=== PATIENT | female | born 2000 | race Caucasian/White ===

== ENCOUNTER → 2020-02-02 14:15 | Outpatient (CLI) | payer SELFPAY ==
--- NOTE | 2020-02-02 14:22 | CA_ITS ---
APPROVED REPORT Left Lower Extremity Venous Study for DVT. [employer] Machine Operator: Zenobia Tellez RVT Indications Lower Extremity Pain: Left Lower Extremity Edema: Left PT C/O PALPABLE KNOT BACK OF MID CALF X SEVERAL WKS,NKI Risk Factors Obesity Vein Imaging CFV (L): compressive, spontaneous, phasic, augmentation FEM (L): compressive, spontaneous, phasic, augmentation POP (L): compressive, spontaneous, phasic, augmentation PTV (L): Compressible GSV (L): Compressible Peroneals (L):Compressible GAS (L): Compressible Findings Study suggests no evidence of DVT of the left lower extremity. Study suggests no evidence of SVT of the left lower extremity. Conclusion Study suggests no evidence of DVT of the left lower extremity. Study suggests no evidence of SVT of the left lower extremity. Critical Notification Physician Notified Date: 02/02/2020 Time: 14:49 Physician Name: Bekah Espinal Electronically signed by : Renan Montana MD 02/02/2020 15:09:01
== END ==
PROVIDERS: PCP Family Medicine; Visit Provider Nurse Practitioner Family
DX: M79.605 Pain in left leg (principal); M79.89 Other specified soft tissue disorders
CPT/HCPCS: 93971

== ENCOUNTER → 2020-02-03 15:32 | Outpatient (CLI) | payer BC, SELFPAY ==
[2020-02-03 18:05] LABS: Activated Partial Thrombo Time 2.5 seconds (23.6-34.0); Fibrinogen 573 mg/dL (204-500); INR 0.98 (0.9-1.1); Prothrombin Time 10.9 seconds (9.4-11.8)
[2020-02-06 13:26] LABS: Thrombin Time 17.4 sec (0.0-23.0)
== END ==
PROVIDERS: Visit Provider Family Medicine
DX: R79.1 Abnormal coagulation profile (principal)
CPT/HCPCS: 36415; 85384; 85610; 85670; 85730

== ENCOUNTER → 2020-03-03 12:52 | Outpatient (CLI) | payer SELFPAY ==
--- NOTE | 2020-03-03 13:03 | CT_ITS ---
PROCEDURE: CT HEAD/BRAIN WO/W CON CLINICAL INDICATION: HEADACHE,NUMBNESS AND TINGLING COMPARISON: No exams were available for comparison TECHNIQUE: IV Contrast: 100ML Isovue 370 Axial images obtained. All CT scans at the facility use one or more dose reduction, viz: automated exposure control, ma/kV adjustment per patient size (including targeted exams where dose is matched to indication, i.e. head), or iterative reconstruction technique. FINDINGS: No midline shift, mass effect, intracranial hemorrhage, hydrocephalus, or extra-axial fluid collection is evident. No enhancing lesions are evident. The lateral ventricles have a slit-like configuration. This may be seen with idiopathic intracranial hypertension. Please correlate with clinical parameters. No enhancing lesions are evident. The calvarium has an unremarkable appearance. No mastoid effusion. There is prominent pneumatization of the petrous bone on both sides right greater than left with a small amount of fluid within the left pneumatized petrous region. No sinus air-fluid levels evident. The adenoids are prominent. There is a small lymph node along the parotid glands anteriorly on both sides at 5 mm on the right and 7 mm on the left IMPRESSION: 1. No acute intracranial findings. 2. Slit-like lateral ventricles which may be seen with idiopathic intracranial hypertension. Please correlate clinically. 3. Small amount fluid within pneumatized the left petrous bone. Dictated by: Renan Montana MD 03/03/2020 19:05 Renan Montana MD in [place] 03/03/2020 19:05
[2020-03-03 13:23] LABS: Blood Urea Nitrogen 13 mg/dl (7-17); Estimated Glomerular Filt Rate 105 ml/min (>60); GFR (African American) 127 ML/MIN (>60)
== END ==
PROVIDERS: PCP Family Medicine; Visit Provider Family Medicine
DX: R51.9 Headache, unspecified (principal); R20.2 Paresthesia of skin
CPT/HCPCS: 36415; 70470; 82565; 84520; Q9967

== ENCOUNTER → 2023-01-29 11:21 | Outpatient (CLI) | payer BC, SELFPAY ==
[2023-01-29 16:29] LABS: Hemoglobin A1C 5.9 % (4.0-6.0)
[2023-01-29 16:52] LABS: Alanine Aminotransferase 40 U/L (12-78); Albumin Level 3.6 g/dl (3.5-5.0); Albumin/Globulin Ratio 1.1 (1.1-1.8); Alkaline Phosphatase 81 U/L (38-126); Anion Gap 12.5 mEq/L (5-15); Aspartate Amino Transferase 38 U/L (14-36); Bilirubin,Total 0.3 mg/dl (0.2-1.3); Blood Urea Nitrogen 16 mg/dl (7-17); Calcium 8.4 mg/dl (8.4-10.2); Carbon Dioxide 27 mmol/L (22.0-30.0); Chloride 106 mmol/L (98-107); Chol/HDL Ratio 4.3 (1-3.5); Cholesterol 187 mg/dl (140-200); Estimated Glomerular Filt Rate 102 ml/min (>60); GFR (African American) 123 ML/MIN (>60); Globulin 3.3 g/dL (1.3-3.2); Glucose 149 mg/dl (74-100); HDL Cholesterol 44 mg/dl (40-60); Potassium 4.5 mmoL/L (3.5-5.1); Sodium 141 mmol/L (136-145); Total Protein,Serum 6.9 g/dl (6.3-8.2); Triglycerides 88 mg/dl (30-150); VLDL Cholesterol 18 mg/dL (0-40)
[2023-01-29 17:03] LABS: Direct LDL Cholesterol 116.22 mg/dL (100-129)
[2023-01-29 17:12] LABS: T4 (Thyroxine) 10.6 ug/dl (5.53-11.0)
[2023-01-29 17:24] LABS: Thyroid Stimulating Hormone 1.17 uIU/mL (0.465-4.68)
[2023-01-30 11:13] LABS: Triiodothyronine (T3) Free 2.5 pg/mL (2.0-4.4)
== END ==
PROVIDERS: PCP Nurse Practitioner Family; Visit Provider Nurse Practitioner Family
DX: O24.419 Gestational diabetes mellitus in pregnancy, unspecified control (principal); Z39.2 Encounter for routine postpartum follow-up
CPT/HCPCS: 80053; 80061; 83036; 84436; 84443; 84481

== ENCOUNTER → 2023-03-02 17:07 | Outpatient (CLI) | payer BC, SELFPAY | PROVIDERS: PCP Nurse Practitioner Family; Visit Provider Nurse Practitioner Family | DX: T81.49XA Infection following a procedure, other surgical site, initial encounter (principal); L03.311 Cellulitis of abdominal wall | CPT/HCPCS: 87070; 87205 ==

== ENCOUNTER → 2023-03-29 07:12 | Outpatient (CLI) | payer BC, SELFPAY | PROVIDERS: PCP Nurse Practitioner Family; Visit Provider Nurse Practitioner Family | DX: Z32.00 Encounter for pregnancy test, result unknown (principal) | CPT/HCPCS: 36415; 84702 ==

== ENCOUNTER 2024-12-26 09:20 | Outpatient (CLI) | payer BC, SELFPAY ==
--- OUTSIDE RECORDS SUMMARY | 2024-12-26 09:22 | XMS_ITS | Clinical Summary ---
[facility] Address [address] [place] [address] Care Team Providers Care Road Boss Name Role Phone Teddy Priyanka FERREIRA Primary Care Provider [phone] Allergies Active Allergy Reactions Criticality Noted Date Comments Sulfa Antibiotics Hives 08/26/2018 Medications vitamin (, CLASSIC, vitamin) tablet Take by mouth Daily. Active OneTouch Delica Lancets 33G misc 1 each 4 (Four) Times a Day. 200 each 3 09/07/2022 Active glucose monitor monitoring kitIndications: Prediabetes Use to check BG 5x/day 1 each 09/25/2023 Active Lancets miscIndications :Prediabetes Use 1 each 5 (Five) Times a Day. 150 each 3 09/25/2023 Active Insulin Pen Needle 32G X 4 MM miscIndications :Prediabetes Use QID with insulin 150 each 1 09/25/2023 Active docusate sodium 100 MG capsule Take 1 capsule by mouth 2 (Two) Times a Day As Needed for Constipation . 60 capsule 10/24/2023 10:34 AM EDT 10/24/2023 Active ferrous sulfate 325 (65 FE) MG tablet Take 1 tablet by mouth Daily With Breakfast. 30 tablet 10/24/2023 10:34 AM EDT 10/25/2023 Active ibuprofen (ADVIL,MOTRIN) 600 MG tablet Take 1 tablet by mouth Every 6 (Six) Hours. 60 tablet 10/24/2023 10:34 AM EDT 10/24/2023 Active Active Problems Problem Noted Date Diagnosed Date S/P repeat low transverse 10/22/2023 Gestational diabetes mellitu s in , insulin controlled 10/18/2023 Insulin controlled gestation al diabetes mellitus (GDM) in third trimester 10/19/2022 Resolved Problems Problem Noted Date Diagnosed Date Resolved Date S/P primary low transverse 12/09/2022 10/22/2023 Term 12/07/2022 12/09/2022 Elevated INR 03/02/2020 12/09/2022 Immunizations Immunization Administration Dates Next Due Fluzone (or Fluarix & Flulaval for VFC) >6mos Meningococcal, Unspecified 12/08/2015 Family History Medical History Relation Name Comments Diabetes Father Shukri Maraino Type 2 Cancer Mother Sarah Mariano Vaginal cance r early 1999 Relation Name Status Comments Father Shukri Mariano Mother Sarah Mariano Social History Tobacco Use Types Packs/Day Years Used Date Smoking Tobacco: Never Passive Smoke Exposure: Never Smokeless Tobacco: Never Tobacco Cessation:Counseling Given: Not Answered Alcohol Use Standard Drinks/Week Comments Not Currently 0 (1 standard drink = 0.6 oz pur e alcohol) OASIS D0700: Social Isolation Answer Da te Recorded Frequency of experiencing loneliness or isolatio n Never 2023 OASIS A1250: Transportation Answer Date Recorded Lack of Transportation (Medical) No 2023 Lack of Transportation (Non-Medical) No 2023 Patient Unable or Declines to Respond No 2023 OASIS B1300: Health Literacy Answer Jamal e Recorded Frequency of needing help to read materials from doctor or pharmacy Never 2023 [facility] Utilities Answer Date Recorded In the past 12 months has e Periscope, oil, or water HistoryFile threatened to shut off services in your home? No 10/22/2023 AUDIT-C Answer Date Recorded Q1: How often do you have a drink containing alc ohol? Monthly or less 10/22/2023 Q2: How many drinks containi ng alcohol do you have on a typical day when you are drinking? 1 or 2 10/22/2023 Q3: How often do you have si x or more drinks on one occasion? Never 10/22/2023 Overall Financial Resource Strain (CARDIA) Answe r Date Recorded How hard is it for you to pa y for the very basics like food, housing, medical care, and heating? Not very hard 10/22/2023 PHQ-2 Answer Date Recorded Retired PHQ-9: Brief Depression Severity Measure Score 0 12/08/2022 [facility] - Occupational Stress Questionnaire Answer Date Recorded Do you feel stress - tense, restless, nervous, or anxious, or unable to sleep at night because your mind is troubled all the time - these days? Not at all 10/22/2023 Exercise Vital Sign Answer Date Recorde d On average, how many days pe r week do you engage in moderate to strenuous exercise (like a brisk walk)? 3 days 10/22/2023 On average, how many minutes do you engage in exercise at this level? 30 min 10/22/2023 Hunger Vital Sign Answer Date Recorded Within the past 12 months, y ou worried that your food would run out before you got the money to buy more. Never true 10/22/19 24 Within the past 12 months, t he food you bought just didn't last and you didn't have money to get more. Never true 10/22/2023 PRAPARE - Transportation Answer Date Re corded In the past 12 months, has l ack of transportation kept you from medical appointments or from getting medications? No 04/2023 In the past 12 months, has l ack of transportation kept you from meetings, work, or from getting things needed for daily living? No 10/22/2023 [place] Depression Scale Answer Date Recorded Retired [place] Depression Score 4 10/22/2023 Retired EPD Scale: Thought of Harming Self Unrec ognized value 10/22/2023 Abuse Screen Answer Date Recorded Feels Unsafe at Home or Work/School no 10/22/2023 Feels Threatened by Someone no 04/2023 Does Anyone Try to Keep You From Having Contact with Others or Doing Things Outside Your Home? no 10/22/2023 Physical Signs of Abuse Present no 10/22/2023 Housing Stability Answer Date Recorded Current Living Arrangements home 04/2023 Potentially Unsafe Housing Conditions none 10/22/2023 Family and Community Support Answer Jamal e Recorded If for any reason you need h elp with day-to-day activities such as bathing, preparing meals, shopping, managing finances, etc., do you get the help you need? I don't need any help 10/22/2023 How often do you feel lonely or isolated from those around you? Never 10/22/2023 Employment Answer Date Recorded Do you want help finding or keeping work or a job? I do not need or want help 10/22/2023 Disabilities Answer Date Recorded Difficulty Concentrating, Remembering or Making Decisions no 10/22/2023 Difficulty Managing Errands Independently no 10/22/2023 Education Answer Date Recorded Do you want help with school or training? For example, starting or completing job training or getting a high school diploma, GED or equivalent No 10/22/2023 Preferred Language Moldovan 10/22/2023 PHQ-2 Answer Date Recorded Retired PHQ-9: Brief Depression Severity Measure Score 0 10/22/2023 Comments No Sex and Gender Information Value Date Recorded Sex Assigned at Female 12/01/2022 1:52 PM EDT Legal Sex Female 1:24 PM EDT Gender Identity Female 12/01/2022 1:52 PM EDT Sexual Orientation Straight 12/01/2022 1 :52 PM EDT Last Filed Vital Signs Vital Sign Reading Time Taken Comments Blood Pressure 133/61 10/24/2023 11:37 AM EDT Pulse 74 10/24/2023 11:37 AM EDT Temperature 36.5 C (97.7 F) 10/24/2023 11:37 AM EDT Respiratory Rate 16 10/24/2023 11:37 AM EDT Oxygen Saturation 100% 10/22/2023 4:00 PM EDT Inhaled Oxygen Concentration - - Weight 179 kg (394 lb) 10/22/2023 11:27 AM EDT Height 175.3 cm (5' 9 ) 10/22/2023 11:27 AM EDT Body Mass Index 58.18 10/22/2023 11:27 AM EDT Plan of Treatment Health Maintenance Due Date Last Done Comments Annual Gynecologic Pelvic and Breast Exam 1998 HPV VACCINES (1 - 3-dose series) 2013 TDAP/TD VACCINES (1 - Tdap) 2017 ANNUAL PHYSICAL 08/28/2018 COVID-19 Vaccine ( season) 2024 INFLUENZA VACCINE 01/21/2025 02/05/2016 CHLAMYDIA SCREENING Discontinued 03/30/2023 HEPATITIS C SCREENING Completed 03/30/2023 , 06/30/2022 Pneumococcal Vaccine 0-49 Aged Out No longer eligible based on patient's age to complete this topic Procedures Procedure Name Priority Date/Time Associated Diagnosis Comments CHLAMYDIA TRACHOMATIS, NEISSERIA GONORRHOEAE, PCR W/ CONFIRMATION Routine 03/30/2023 10:33 AM EST care, subsequent , first trimester Less than 8 weeks gestation of HEPATITIS C ANTIBODY Routine 03/30/2023 10:33 AM EST care, subsequent , first trimester Less than 8 weeks gestation of from Last 3 Months or Most Recently Relevant to Health Maintenance Results * Hepatitis C Antibody (03/30/2023 10:33 AM EST) Pathologist [facility] Hepatitis C Ab Non-Reacti ve Non-Reacti ve 03/30/2023 7:10 PM EST [facility] Blood Venipuncture / Unknown 03/30/2023 10:33 AM EST 03/30/2023 10:33 AM EST [facility] - 03/30/2023 7:10 PM EST Results may be falsely decreased if patient taking Biotin. Angi Farias DO LAB BLOOD ORDERABLES Final R esult [facility]
[address] [place] [address], * Chlamydia trachomatis, Neisseria gonorrhoeae, PCR w/ confirmation - Urine, Urine, Clean Catch (03/30/2023 10:33 AM EST) Chlamydia trachomatis, DIANA Negative Negative 04/04/2023 1:09 PM EST [facility] Neisseria gonorrhoeae, DIANA Negative Negative 04/04/2023 1:09 PM EST [facility] Urine Urine specimen obtained by clean catch procedure / Unknown Collection / Unknown 03/30/2023 10:33 AM EST 03/30/2023 10:33 AM EST Narrative [facility] - 04/04/2023 1:09 PM EST Performed at: - [facility] [address] [id number] Grain Operator: Rm Barcenas MD, Phone: [phone] Angi Farias DO MICROBIOLOGY - GENERAL ORDER RONNIE Final Result [facility] [address] [place] [address], from Last 3 Months or Most Recently Relevant to Health Maintenance Insurance PPO Advance Directives * CPR (Attempt to Resuscitate) (Latest Code Status on File) Date Activated Date Inactivated Comments 10/22/2023 4:17 PM 10/24/2023 3:54 PM Question Answer Comments Code Status (Patient has no pulse and is not breathing): CPR (Attempt to Resuscitate) Medical Interventions (Patie nt has pulse or is breathing): Full * CPR (Attempt to Resuscitate) Date Activated Date Inactivated Comments 10/22/2023 10:20 AM 10/22/2023 4:17 PM Question Answer Comments Code Status (Patient has no pulse and is not breathing): CPR (Attempt to Resuscitate) Medical Interventions (Patie nt has pulse or is breathing): Full Support Level Of Support Discussed With: Patient * CPR (Attempt to Resuscitate) Date Activated Date Inactivated Comments 12/22/2022 11:33 AM 10/10/2023 2:32 AM No physician signature needed for this code status. Mahesh as Signed. * CPR (Attempt to Resuscitate) Date Activated Date Inactivated Comments 12/09/2022 4:41 AM 12/11/2022 3:10 PM Question Answer Comments Code Status (Patient has no pulse and is not breathing): CPR (Attempt to Resuscitate) Medical Interventions (Patie nt has pulse or is breathing): Full Care Teams Road Boss Relationship Specialty Start Date End Date Priyanka Espinal APRN [address] [place] [address] PCP - General Internal Medicine 05/04/23
[2024-12-26 10:13] LABS: Magnesium 1.6 mg/dl (1.6-2.3)
[2024-12-26 10:47] LABS: Thyroid Stimulating Hormone 1.25 uIU/mL (0.465-4.68)
[2024-12-26 11:22] LABS: Hemoglobin A1C 6.3 % (4.0-6.0)
[2024-12-27 08:14] LABS: Testosterone,Total 51 ng/dL (13-71)
== END 2024-12-26 23:59 | disposition home or self-care (01) ==
LOC: LAB 09:21
PROVIDERS: PCP Nurse Practitioner Family; Visit Provider Nurse Practitioner Family
DX: E28.2 Polycystic ovarian syndrome (principal); E16.1 Other hypoglycemia; R73.03 Prediabetes; Z97.5 Presence of (intrauterine) contraceptive device
CPT/HCPCS: 82525; 82670; 83036; 83525; 83735; 84144; 84403; 84443; 84630